=== PATIENT | male | born 1960 | race Caucasian/White ===

== ENCOUNTER 2017-12-28 07:07 | Inpatient (IN) | payer MEDICAID, OTHER ==
[2017-12-28] MEDS ORDERED: NITROGLYCERIN (SL) 0.4 MG TAB (07:16)
[2017-12-28] MEDS: NITROGLYCERIN (SL) 0.4 MG TAB SL (07:19)
[2017-12-28] MEDS: ENALAPRILAT 1.25 MG INJ IV (07:19)
[2017-12-28] MEDS: morphine 4 MG/ML VIAL IV (07:21)
[2017-12-28] MEDS: SOD CHLORIDE 0.9% 500 ML IV (07:21)
[2017-12-28] MEDS: ONDANSETRON 4 MG INJ IV ×2 (07:21→20:38)
[2017-12-28 07:27] LABS: ADD MAN DIFF? NO
[2017-12-28 07:28] LABS: BASOPHIL # 0.1 10^3/ul (0.0-0.1); BASOPHILS % 0.7 % (0.0-2.0); EOSINOPHILS # 0.1 10^3/ul (0.0-0.5); EOSINOPHILS % 1.9 % (0.0-7.0); HEMATOCRIT 44.3 % (42.0-52.0); HEMOGLOBIN 14.9 g/dl (14.0-18.0); LYMPHOCYTES # 2.5 10^3/ul (0.8-2.9); LYMPHOCYTES % 33.4 % (15.0-51.0); MEAN CORPUSCULAR HEMOGLOBIN 30.2 pg (29.0-33.0); MEAN CORPUSCULAR HGB CONC 33.6 g/dl (32.0-37.0); MEAN CORPUSCULAR VOLUME 89.9 fl (82.0-101.0); MONOCYTE # 0.8 10^3/ul (0.3-0.9); MONOCYTES % 10.1 % (0.0-11.0); NEUTROPHILS % 53.6 % (39.0-77.0); PLATELET COUNT 248 10^3/UL (140-415); RED BLOOD COUNT 4.93 10^6/ul (4.70-6.10); RED CELL DISTRIBUTION WIDTH 13.4 % (11.5-14.5)
[2017-12-28 07:28] LABS: WHITE BLOOD COUNT 7.5 10^3/ul (4.8-10.8)
[2017-12-28] MEDS ORDERED: HEPARIN 25000 UNITS/250 ML 250 ML IV (07:40)
[2017-12-28] MEDS ORDERED: HEPARIN 1000 UNITS/ML 10 ML INJ ×2 (07:42→07:49)
[2017-12-28] MEDS: HEPARIN 1000 UNITS/ML 10 ML INJ IV (07:45)
[2017-12-28 07:46] LABS: INR 1.19; PROTIME 15.3 Sec (11.9-14.9); PT RATIO 1.2
[2017-12-28] MEDS ORDERED: FUROSEMIDE 40 MG INJ (07:46)
[2017-12-28 07:47] LABS: PARTIAL THROMBOPLASTIN TIME 23.3 Sec (25.0-35.0)
[2017-12-28] MEDS ORDERED: LIDOCAINE 1% (MDV) 20 ML INJ (07:49)
[2017-12-28] MEDS ORDERED: IODIXANOL LOCM 100 ML BTL (07:49)
[2017-12-28] MEDS ORDERED: FENTAnyl 50 MCG/ML VIAL (07:50)
[2017-12-28] MEDS ORDERED: VERAPAMIL 5 MG INJ (07:50)
[2017-12-28] MEDS ORDERED: MIDAZOLAM 1 MG/ML 2 ML INJ (07:50)
[2017-12-28] MEDS: FUROSEMIDE 40 MG INJ IV (07:50)
[2017-12-28] MEDS ORDERED: NITROGLYCERIN (IC) 100 MCG/ML INJ (07:50)
[2017-12-28] MEDS ORDERED: ONDANSETRON 4 MG INJ ×2 (07:54→08:09)
[2017-12-28 08:02] LABS: CHOLESTEROL 125 mg/dl (100-200)
[2017-12-28 08:02] LABS: ALANINE AMINOTRANSFERASE 30 IU/L (13-69); ALBUMIN 3.9 g/dl (3.3-4.9); ALKALINE PHOSPHATASE 93 IU/L (42-121); ANION GAP 21 (8-16); ASPARTATE AMINO TRANSFERASE 45 IU/L (15-46); BILIRUBIN,INDIRECT 3.3 mg/dl (0-1.1); BILIRUBIN,TOTAL 3.3 mg/dl (0.2-1.3); BLOOD UREA NITROGEN 17 mg/dl (7-20); CALCIUM 9.1 mg/dl (8.4-10.2); CARBON DIOXIDE 21 mmol/L (21-31); CHLORIDE 98 mmol/L (97-110); CHOL/HDL RATIO 6.9 RATIO; CREATINE KINASE 48 IU/L (23-200); CREATININE 0.94 mg/dl (0.61-1.24); GLUCOSE 119 mg/dl (70-220); HDL CHOLESTEROL 18 mg/dl (28-71); LDL CHOLESTEROL,CALCULATED 80 mg/dl; LIPASE 168 U/L (23-300); SODIUM 137 mmol/L (135-144); TOTAL PROTEIN 7.8 g/dl (6.1-8.1); TRIGLYCERIDES 135 mg/dl (0-149)
[2017-12-28 08:14] LABS: B-TYPE NATRIURETIC PEPTIDE 10100 PG/ML (0-125); CK INDEX 1.3; CK-MB 0.61 ng/ml (0.0-2.4); POTASSIUM 2.9 mmol/L (3.5-5.1); TROPONIN-I 0.038 ng/ml (0.000-0.120)
[2017-12-28] MEDS: HEPARIN 25000 UNITS/250 ML 250 ML IV (08:23)
[2017-12-28] MEDS ORDERED: CEFAZOLIN 1 GM/50 ML (PMX) 50 ML IVPB (08:35)
[2017-12-28] MEDS ORDERED: TICAGRELOR 90 MG TABLET (08:58)
[2017-12-28 13:55] LABS: ANION GAP 20 (8-16); BLOOD UREA NITROGEN 17 mg/dl (7-20); CALCIUM 8.5 mg/dl (8.4-10.2); CARBON DIOXIDE 18 mmol/L (21-31); CHLORIDE 100 mmol/L (97-110); CREATININE 0.85 mg/dl (0.61-1.24); GLUCOSE 177 mg/dl (70-220); POTASSIUM 3.1 mmol/L (3.5-5.1); SODIUM 135 mmol/L (135-144)
[2017-12-28] MEDS: POTASSIUM CHLORIDE (SR) 20 MEQ TAB PO (14:49)
[2017-12-28] MEDS: POTASSIUM CHLORIDE 50 ML IVPB (14:49)
[2017-12-28] MEDS: LOSARTAN 25 MG TAB PO ×2 (15:38→21:00)
[2017-12-28 16:30] LABS: AMPHETAMINE/METHAMPHETAMINE Negative (NEGATIVE); BARBITURATES Negative (NEGATIVE); BENZODIAZEPINES Positive (NEGATIVE); CANNABINOIDS Negative (NEGATIVE); COCAINE Negative (NEGATIVE); OPIATES Positive (NEGATIVE)
[2017-12-28 17:57] LABS: ADD UMIC NO; UR ASCORBIC ACID NEGATIVE (NEGATIVE); UR BILIRUBIN (Dip) NEGATIVE (NEGATIVE); UR BLOOD (Dip) NEGATIVE (NEGATIVE); UR CLARITY CLEAR (CLEAR); UR COLOR STRAW (YELLOW); UR GLUCOSE (Dip) NEGATIVE (NEGATIVE); UR KETONES (Dip) NEGATIVE (NEGATIVE); UR LEUKOCYTE ESTERASE (Dip) NEGATIVE Leu/ul (NEGATIVE); UR NITRITE (Dip) NEGATIVE (NEGATIVE); UR SPECIFIC GRAVITY (Dip) 1.016 (1.003-1.030); UR TOTAL PROTEIN (Dip) NEGATIVE (NEGATIVE); UR UROBILINOGEN (Dip) NEGATIVE (NEGATIVE)
[2017-12-28 19:27] LABS: CREATINE KINASE 1258 IU/L (23-200)
[2017-12-28 19:28] LABS: ANION GAP 18 (8-16); BLOOD UREA NITROGEN 19 mg/dl (7-20); CALCIUM 8.8 mg/dl (8.4-10.2); CARBON DIOXIDE 19 mmol/L (21-31); CHLORIDE 101 mmol/L (97-110); CREATININE 1.08 mg/dl (0.61-1.24); GLUCOSE 170 mg/dl (70-220); POTASSIUM 4.3 mmol/L (3.5-5.1); SODIUM 134 mmol/L (135-144)
[2017-12-28 19:39] LABS: CK INDEX 9.3
[2017-12-28] MEDS ORDERED: TICAGRELOR 90 MG TABLET PO (21:00)
[2017-12-28] MEDS: ATORVASTATIN 80 MG TAB PO (21:27)
[2017-12-28] MEDS: ZOLPIDEM 5 MG TAB PO (21:28)
[2017-12-28] MEDS: APIXABAN 5 MG TABLET PO (21:28)
[2017-12-29 05:23] LABS: ADD MAN DIFF? NO
[2017-12-29 05:30] LABS: ABNORMAL IP MESSAGE 1; BASOPHILS % 0.2 % (0.0-2.0); EOSINOPHILS % 0.1 % (0.0-7.0); HEMATOCRIT 39.4 % (42.0-52.0); HEMOGLOBIN 13.2 g/dl (14.0-18.0); LYMPHOCYTES # 1.2 10^3/ul (0.8-2.9); LYMPHOCYTES % 14.1 % (15.0-51.0); MEAN CORPUSCULAR HEMOGLOBIN 29.9 pg (29.0-33.0); MEAN CORPUSCULAR HGB CONC 33.5 g/dl (32.0-37.0); MEAN CORPUSCULAR VOLUME 89.1 fl (82.0-101.0); MEAN PLATELET VOLUME 13.2 fl (7.4-10.4); MONOCYTES % 11.6 % (0.0-11.0); NEUTROPHILS % 73.5 % (39.0-77.0); NUCLEATED RED BLOOD CELLS% 0.4 /100WBC (0.0-0.0); PLATELET COUNT 204 10^3/UL (140-415); POSITIVE DIFF @See below; RED BLOOD COUNT 4.42 10^6/ul (4.70-6.10); RED CELL DISTRIBUTION WIDTH 13.5 % (11.5-14.5)
[2017-12-29 05:30] LABS: WHITE BLOOD COUNT 8.2 10^3/ul (4.8-10.8)
[2017-12-29 05:50] LABS: ANION GAP 17 (8-16); BLOOD UREA NITROGEN 21 mg/dl (7-20); CALCIUM 8.6 mg/dl (8.4-10.2); CARBON DIOXIDE 20 mmol/L (21-31); CHLORIDE 103 mmol/L (97-110); CHOLESTEROL 90 mg/dl (100-200); CREATININE 1.16 mg/dl (0.61-1.24); GLUCOSE 117 mg/dl (70-220); HDL CHOLESTEROL 15 mg/dl (28-71); LDL CHOLESTEROL,CALCULATED 57 mg/dl; POTASSIUM 4.1 mmol/L (3.5-5.1); SODIUM 136 mmol/L (135-144); TRIGLYCERIDES 88 mg/dl (0-149)
[2017-12-29 05:57] LABS: MAGNESIUM 1.6 mg/dl (1.7-2.5)
[2017-12-29] MEDS: CLOPIDOGREL 75 MG TAB PO (08:31)
[2017-12-29] MEDS: APIXABAN 5 MG TABLET PO ×2 (08:32→20:51)
[2017-12-29] MEDS: METOPROLOL (XL) 25 MG TAB PO (08:32)
[2017-12-29] MEDS: ASPIRIN (EC) 81 MG TAB PO (08:32)
[2017-12-29] MEDS: LOSARTAN 25 MG TAB PO ×2 (08:33→20:51)
[2017-12-29 15:09] LABS: AADO2 Arterial 75.4 mmHg (7.0-24.0); Allen Test ACCEPTAB; Arterial Base Excess -3.2 mmol/L (-3.0-3); Arterial COHb 0.5 % (0.0-3.0); Arterial Fraction of Oxyhgb 96.3 % (93.0-99.0); Arterial HCO3 17.7 mmol/L (22.0-26.0); Arterial MetHb 0.2 % (0.0-1.5); Arterial Total Hemglobin 14.1 g/dl (12.0-18.0); Arterial pCO2 22.6 mmhg (35-45); MODE NASAL CANNULA; Site Right Radial
[2017-12-29] MEDS: MAGNESIUM SULFATE 2 GM/50 ML 50 ML IVPB (20:51)
[2017-12-29] MEDS: ATORVASTATIN 80 MG TAB PO (20:51)
[2017-12-30 06:25] LABS: ADD MAN DIFF? NO
[2017-12-30 06:57] LABS: WHITE BLOOD COUNT 7.8 10^3/ul (4.8-10.8)
[2017-12-30 06:57] LABS: ABNORMAL IP MESSAGE 1; BASOPHIL # 0.1 10^3/ul (0.0-0.1); BASOPHILS % 0.9 % (0.0-2.0); EOSINOPHILS # 0.2 10^3/ul (0.0-0.5); EOSINOPHILS % 2.2 % (0.0-7.0); HEMATOCRIT 38.8 % (42.0-52.0); LYMPHOCYTES # 1.6 10^3/ul (0.8-2.9); LYMPHOCYTES % 20.3 % (15.0-51.0); MEAN CORPUSCULAR HEMOGLOBIN 30.3 pg (29.0-33.0); MEAN CORPUSCULAR HGB CONC 33.5 g/dl (32.0-37.0); MEAN CORPUSCULAR VOLUME 90.4 fl (82.0-101.0); MEAN PLATELET VOLUME 13.3 fl (7.4-10.4); MONOCYTE # 1.1 10^3/ul (0.3-0.9); MONOCYTES % 13.5 % (0.0-11.0); NEUTROPHIL # 4.9 10^3/ul (1.6-7.5); NEUTROPHILS % 62.6 % (39.0-77.0); NUCLEATED RED BLOOD CELLS% 0.4 /100WBC (0.0-0.0); PLATELET COUNT 187 10^3/UL (140-415); POSITIVE DIFF @See below; RED BLOOD COUNT 4.29 10^6/ul (4.70-6.10); RED CELL DISTRIBUTION WIDTH 14.1 % (11.5-14.5)
[2017-12-30 07:31] LABS: ANION GAP 18 (8-16); BLOOD UREA NITROGEN 27 mg/dl (7-20); CALCIUM 8.6 mg/dl (8.4-10.2); CARBON DIOXIDE 24 mmol/L (21-31); CHLORIDE 101 mmol/L (97-110); CREATININE 1.25 mg/dl (0.61-1.24); GLUCOSE 95 mg/dl (70-220); MAGNESIUM 2.5 mg/dl (1.7-2.5); POTASSIUM 3.5 mmol/L (3.5-5.1); SODIUM 139 mmol/L (135-144)
[2017-12-30] MEDS: ASPIRIN (EC) 81 MG TAB PO (08:41)
[2017-12-30] MEDS: LOSARTAN 25 MG TAB PO ×2 (08:41→20:43)
[2017-12-30] MEDS: APIXABAN 5 MG TABLET PO ×2 (08:41→20:43)
[2017-12-30] MEDS: CLOPIDOGREL 75 MG TAB PO (08:41)
[2017-12-30] MEDS: METOPROLOL (XL) 25 MG TAB PO (08:42)
[2017-12-30] MEDS: POTASSIUM CHLORIDE (SR) 20 MEQ TAB PO ×2 (08:54→20:43)
[2017-12-30] MEDS: DOCUSATE SODIUM 100 MG CAP PO ×2 (11:00→20:43)
[2017-12-30] MEDS ORDERED: ONDANSETRON 4 MG INJ IV (11:00)
[2017-12-30] MEDS: ONDANSETRON 4 MG INJ IV (11:21)
[2017-12-30] MEDS: FUROSEMIDE 20 MG INJ IV (17:55)
[2017-12-30] MEDS: PANTOPRAZOLE 40 MG INJ IV (17:55)
[2017-12-30] MEDS: ATORVASTATIN 80 MG TAB PO (20:43)
[2017-12-30] MEDS: ALPRAZOLAM 0.25 MG TAB PO (20:44)
[2017-12-31] MEDS: PANTOPRAZOLE 40 MG INJ IV ×2 (05:40→17:36)
[2017-12-31 06:14] LABS: ADD MAN DIFF? NO
[2017-12-31 06:25] LABS: WHITE BLOOD COUNT 7.1 10^3/ul (4.8-10.8)
[2017-12-31 06:25] LABS: ABNORMAL IP MESSAGE 1; BASOPHILS % 0.6 % (0.0-2.0); EOSINOPHILS # 0.1 10^3/ul (0.0-0.5); EOSINOPHILS % 1.7 % (0.0-7.0); HEMOGLOBIN 13.7 g/dl (14.0-18.0); LYMPHOCYTES # 1.5 10^3/ul (0.8-2.9); LYMPHOCYTES % 20.9 % (15.0-51.0); MEAN CORPUSCULAR HEMOGLOBIN 30.9 pg (29.0-33.0); MEAN CORPUSCULAR HGB CONC 34.3 g/dl (32.0-37.0); MEAN CORPUSCULAR VOLUME 90.1 fl (82.0-101.0); MEAN PLATELET VOLUME 13.3 fl (7.4-10.4); MONOCYTE # 0.9 10^3/ul (0.3-0.9); MONOCYTES % 12.1 % (0.0-11.0); NEUTROPHIL # 4.6 10^3/ul (1.6-7.5); NEUTROPHILS % 64.3 % (39.0-77.0); NUCLEATED RED BLOOD CELLS% 0.6 /100WBC (0.0-0.0); PLATELET COUNT 195 10^3/UL (140-415); POSITIVE DIFF @See below; RED BLOOD COUNT 4.44 10^6/ul (4.70-6.10); RED CELL DISTRIBUTION WIDTH 14.1 % (11.5-14.5)
[2017-12-31 06:43] LABS: ANION GAP 16 (8-16); BLOOD UREA NITROGEN 33 mg/dl (7-20); CALCIUM 8.5 mg/dl (8.4-10.2); CARBON DIOXIDE 24 mmol/L (21-31); CHLORIDE 103 mmol/L (97-110); CREATININE 1.83 mg/dl (0.61-1.24); GLUCOSE 96 mg/dl (70-220); SODIUM 139 mmol/L (135-144)
[2017-12-31] MEDS: ASPIRIN (EC) 81 MG TAB PO (08:13)
[2017-12-31] MEDS: DOCUSATE SODIUM 100 MG CAP PO ×2 (08:13→20:58)
[2017-12-31] MEDS: CLOPIDOGREL 75 MG TAB PO (08:13)
[2017-12-31] MEDS: LOSARTAN 25 MG TAB PO ×2 (08:13→21:00)
[2017-12-31] MEDS: APIXABAN 5 MG TABLET PO ×2 (08:14→20:58)
[2017-12-31] MEDS: METOPROLOL (XL) 25 MG TAB PO (08:14)
[2017-12-31] MEDS: ONDANSETRON 4 MG INJ IV (11:10)
[2017-12-31] MEDS: ATORVASTATIN 80 MG TAB PO (20:58)
[2018-01-01] MEDS: PANTOPRAZOLE 40 MG INJ IV ×2 (05:24→17:57)
[2018-01-01 06:17] LABS: ADD MAN DIFF? NO
[2018-01-01 06:27] LABS: WHITE BLOOD COUNT 5.8 10^3/ul (4.8-10.8)
[2018-01-01 06:27] LABS: ABNORMAL IP MESSAGE 1; BASOPHIL # 0.1 10^3/ul (0.0-0.1); BASOPHILS % 0.9 % (0.0-2.0); EOSINOPHILS # 0.1 10^3/ul (0.0-0.5); EOSINOPHILS % 1.4 % (0.0-7.0); HEMATOCRIT 40.2 % (42.0-52.0); HEMOGLOBIN 13.8 g/dl (14.0-18.0); LYMPHOCYTES # 1.3 10^3/ul (0.8-2.9); LYMPHOCYTES % 22.2 % (15.0-51.0); MEAN CORPUSCULAR HEMOGLOBIN 30.8 pg (29.0-33.0); MEAN CORPUSCULAR HGB CONC 34.3 g/dl (32.0-37.0); MEAN CORPUSCULAR VOLUME 89.7 fl (82.0-101.0); MEAN PLATELET VOLUME 13.3 fl (7.4-10.4); MONOCYTE # 0.8 10^3/ul (0.3-0.9); MONOCYTES % 14.4 % (0.0-11.0); NEUTROPHIL # 3.5 10^3/ul (1.6-7.5); NEUTROPHILS % 60.8 % (39.0-77.0); NUCLEATED RED BLOOD CELLS% 0.5 /100WBC (0.0-0.0); PLATELET COUNT 208 10^3/UL (140-415); POSITIVE DIFF @See below; RED BLOOD COUNT 4.48 10^6/ul (4.70-6.10)
[2018-01-01 07:12] LABS: ANION GAP 17 (8-16); BLOOD UREA NITROGEN 37 mg/dl (7-20); CALCIUM 8.5 mg/dl (8.4-10.2); CARBON DIOXIDE 23 mmol/L (21-31); CHLORIDE 102 mmol/L (97-110); CREATININE 2.19 mg/dl (0.61-1.24); GLUCOSE 110 mg/dl (70-220); POTASSIUM 3.8 mmol/L (3.5-5.1); SODIUM 138 mmol/L (135-144)
[2018-01-01] MEDS: DOCUSATE SODIUM 100 MG CAP PO ×2 (09:23→22:02)
[2018-01-01] MEDS: ASPIRIN (EC) 81 MG TAB PO (09:24)
[2018-01-01] MEDS: CLOPIDOGREL 75 MG TAB PO (09:24)
[2018-01-01] MEDS: METOPROLOL (XL) 50 MG TAB PO (09:24)
[2018-01-01] MEDS: LOSARTAN 25 MG TAB PO ×2 (09:24→22:03)
[2018-01-01] MEDS: APIXABAN 5 MG TABLET PO ×2 (09:24→22:03)
[2018-01-01] MEDS: ATORVASTATIN 80 MG TAB PO (22:02)
[2018-01-02] MEDS: PANTOPRAZOLE 40 MG INJ IV ×2 (06:35→17:04)
[2018-01-02] MEDS: DOCUSATE SODIUM 100 MG CAP PO ×2 (08:00→21:21)
[2018-01-02] MEDS: LOSARTAN 25 MG TAB PO (08:01)
[2018-01-02] MEDS: APIXABAN 5 MG TABLET PO ×2 (08:01→21:21)
[2018-01-02] MEDS: CLOPIDOGREL 75 MG TAB PO (08:01)
[2018-01-02] MEDS: ASPIRIN (EC) 81 MG TAB PO (08:01)
[2018-01-02] MEDS: METOPROLOL (XL) 50 MG TAB PO (08:01)
[2018-01-02 10:13] LABS: ANION GAP 16 (8-16); BLOOD UREA NITROGEN 39 mg/dl (7-20); CALCIUM 8.5 mg/dl (8.4-10.2); CARBON DIOXIDE 23 mmol/L (21-31); CHLORIDE 102 mmol/L (97-110); CREATININE 2.44 mg/dl (0.61-1.24); GLUCOSE 121 mg/dl (70-220); SODIUM 137 mmol/L (135-144)
[2018-01-02 11:03] LABS: ADD UMIC YES; UR ASCORBIC ACID NEGATIVE (NEGATIVE); UR BACTERIA FEW /HPF (NONE SEEN); UR BILIRUBIN (Dip) NEGATIVE (NEGATIVE); UR BLOOD (Dip) 2+ mg/dL (NEGATIVE); UR CLARITY TURBID (CLEAR); UR COLOR AMBER (YELLOW); UR GLUCOSE (Dip) NEGATIVE (NEGATIVE); UR KETONES (Dip) NEGATIVE (NEGATIVE); UR LEUKOCYTE ESTERASE (Dip) 1+ Leu/ul (NEGATIVE); UR MUCUS FEW /HPF (NONE SEEN); UR NITRITE (Dip) NEGATIVE (NEGATIVE); UR RBC 2 /HPF (0-5); UR SPECIFIC GRAVITY (Dip) 1.014 (1.003-1.030); UR SQUAMOUS EPITHELIAL CELL FEW /HPF (FEW); UR TOTAL PROTEIN (Dip) 1+ mg/dl (NEGATIVE); UR URIC ACID CRYSTAL MANY /HPF (NONE SEEN); UR UROBILINOGEN (Dip) 2+ mg/dL (NEGATIVE); UR WBC 7 /HPF (0-5)
[2018-01-02] MEDS: SOD CHLORIDE 0.9% 1,000 ML IV (12:02)
[2018-01-02] MEDS: ATORVASTATIN 80 MG TAB PO (21:21)
[2018-01-03] MEDS: SOD CHLORIDE 0.9% 1,000 ML IV ×2 (00:50→12:14)
[2018-01-03 05:35] LABS: ADD MAN DIFF? NO
[2018-01-03 05:44] LABS: ABNORMAL IP MESSAGE 1; BASOPHILS % 0.7 % (0.0-2.0); EOSINOPHILS % 0.5 % (0.0-7.0); HEMATOCRIT 41.1 % (42.0-52.0); LYMPHOCYTES # 1.2 10^3/ul (0.8-2.9); LYMPHOCYTES % 19.3 % (15.0-51.0); MEAN CORPUSCULAR HEMOGLOBIN 30.5 pg (29.0-33.0); MEAN CORPUSCULAR HGB CONC 34.1 g/dl (32.0-37.0); MEAN CORPUSCULAR VOLUME 89.5 fl (82.0-101.0); MEAN PLATELET VOLUME 13.3 fl (7.4-10.4); MONOCYTE # 0.8 10^3/ul (0.3-0.9); MONOCYTES % 12.8 % (0.0-11.0); NEUTROPHILS % 66.4 % (39.0-77.0); NUCLEATED RED BLOOD CELLS # 0.1 10^3/ul (0.0-0.0); PLATELET COUNT 215 10^3/UL (140-415); POSITIVE DIFF @See below; RED BLOOD COUNT 4.59 10^6/ul (4.70-6.10); RED CELL DISTRIBUTION WIDTH 14.3 % (11.5-14.5)
[2018-01-03] MEDS: PANTOPRAZOLE 40 MG INJ IV (06:00)
[2018-01-03 06:16] LABS: ANION GAP 16 (8-16); BLOOD UREA NITROGEN 41 mg/dl (7-20); CALCIUM 8.7 mg/dl (8.4-10.2); CARBON DIOXIDE 23 mmol/L (21-31); CHLORIDE 99 mmol/L (97-110); CREATININE 2.47 mg/dl (0.61-1.24); GLUCOSE 118 mg/dl (70-220); POTASSIUM 4.7 mmol/L (3.5-5.1); SODIUM 133 mmol/L (135-144)
[2018-01-03] MEDS: METOPROLOL (XL) 50 MG TAB PO (08:01)
[2018-01-03] MEDS: CLOPIDOGREL 75 MG TAB PO (08:01)
[2018-01-03] MEDS: APIXABAN 5 MG TABLET PO ×2 (08:01→20:22)
[2018-01-03] MEDS: DOCUSATE SODIUM 100 MG CAP PO ×2 (08:01→20:22)
[2018-01-03] MEDS: ASPIRIN (EC) 81 MG TAB PO (08:01)
[2018-01-03 16:39] LABS: ANION GAP 17 (8-16); BLOOD UREA NITROGEN 41 mg/dl (7-20); CALCIUM 8.7 mg/dl (8.4-10.2); CARBON DIOXIDE 20 mmol/L (21-31); CHLORIDE 101 mmol/L (97-110); CREATININE 2.44 mg/dl (0.61-1.24); GLUCOSE 110 mg/dl (70-220); POTASSIUM 4.4 mmol/L (3.5-5.1); SODIUM 134 mmol/L (135-144)
[2018-01-03 17:46] LABS: CHLORIDE, RANDOM URINE <20 mmol/L (32-290)
[2018-01-03] MEDS: ATORVASTATIN 80 MG TAB PO (20:22)
[2018-01-04] MEDS: SOD CHLORIDE 0.9% 1,000 ML IV (04:20)
[2018-01-04] MEDS: PANTOPRAZOLE (EC) 40 MG TAB PO (05:24)
[2018-01-04 05:58] LABS: ADD MAN DIFF? NO
[2018-01-04 06:20] LABS: WHITE BLOOD COUNT 5.5 10^3/ul (4.8-10.8)
[2018-01-04 06:20] LABS: ABNORMAL IP MESSAGE 1; BASOPHILS % 0.7 % (0.0-2.0); EOSINOPHILS # 0.1 10^3/ul (0.0-0.5); EOSINOPHILS % 1.1 % (0.0-7.0); HEMATOCRIT 41.2 % (42.0-52.0); HEMOGLOBIN 13.8 g/dl (14.0-18.0); LYMPHOCYTES # 1.5 10^3/ul (0.8-2.9); LYMPHOCYTES % 26.4 % (15.0-51.0); MEAN CORPUSCULAR HEMOGLOBIN 30.1 pg (29.0-33.0); MEAN CORPUSCULAR HGB CONC 33.5 g/dl (32.0-37.0); MEAN CORPUSCULAR VOLUME 89.8 fl (82.0-101.0); MEAN PLATELET VOLUME 13.6 fl (7.4-10.4); MONOCYTE # 0.9 10^3/ul (0.3-0.9); MONOCYTES % 15.6 % (0.0-11.0); NEUTROPHIL # 3.1 10^3/ul (1.6-7.5); NEUTROPHILS % 55.7 % (39.0-77.0); NUCLEATED RED BLOOD CELLS # 0.1 10^3/ul (0.0-0.0); NUCLEATED RED BLOOD CELLS% 1.6 /100WBC (0.0-0.0); PLATELET COUNT 196 10^3/UL (140-415); POSITIVE DIFF @See below; RED BLOOD COUNT 4.59 10^6/ul (4.70-6.10); RED CELL DISTRIBUTION WIDTH 14.3 % (11.5-14.5)
[2018-01-04 07:03] LABS: ANION GAP 19 (8-16); BLOOD UREA NITROGEN 39 mg/dl (7-20); CALCIUM 8.5 mg/dl (8.4-10.2); CARBON DIOXIDE 21 mmol/L (21-31); CHLORIDE 99 mmol/L (97-110); CREATININE 2.15 mg/dl (0.61-1.24); GLUCOSE 93 mg/dl (70-220); MAGNESIUM 2.2 mg/dl (1.7-2.5); PHOSPHORUS 4.8 mg/dl (2.5-4.9); POTASSIUM 4.2 mmol/L (3.5-5.1); SODIUM 135 mmol/L (135-144)
[2018-01-04 07:39] LABS: SODIUM,URINE RANDOM < 13 mmol/L (30-90)
[2018-01-04] MEDS: DOCUSATE SODIUM 100 MG CAP PO (08:26)
[2018-01-04] MEDS: ASPIRIN (EC) 81 MG TAB PO (08:31)
[2018-01-04] MEDS: CLOPIDOGREL 75 MG TAB PO (08:31)
[2018-01-04] MEDS: METOPROLOL (XL) 50 MG TAB PO ×2 (08:36→11:49)
[2018-01-04] MEDS: APIXABAN 5 MG TABLET PO (08:36)
[2018-01-04] MEDS: CEFTRIAXONE 1 GM/50 ML (PMX) 50 ML IVPB (11:48)
[2018-01-05] MEDS ORDERED: METOPROLOL (XL) 100 MG TAB PO (09:00)
== END 2018-01-04 18:18 | disposition home or self-care (01) | DRG 246 ==
LOC: 6WM 12-30 12:35 → E/R 07:07 → ICU 08:11
PROC: 027034Z Dilation of Coronary Artery, One Artery with Drug-eluting Intraluminal Device, Percutaneous Approach (ICD-10-PCS; principal; 2017-12-28 07:49)
PROC: 4A023N7 Measurement of Cardiac Sampling and Pressure, Left Heart, Percutaneous Approach (ICD-10-PCS; 2017-12-28 07:49)
PROC: B2111ZZ Fluoroscopy of Multiple Coronary Arteries using Low Osmolar Contrast (ICD-10-PCS; 2017-12-28 07:49)
PROC: B215YZZ Fluoroscopy of Left Heart using Other Contrast (ICD-10-PCS; 2017-12-28 07:49)
PROC: B211YZZ Fluoroscopy of Multiple Coronary Arteries using Other Contrast (ICD-10-PCS; 2017-12-28 07:49)
DX: I21.09 ST elevation (STEMI) myocardial infarction involving other coronary artery of anterior wall (principal); N17.0 Acute kidney failure with tubular necrosis; N39.0 Urinary tract infection, site not specified; I25.5 Ischemic cardiomyopathy; F17.200 Nicotine dependence, unspecified, uncomplicated; E87.6 Hypokalemia; R33.9 Retention of urine, unspecified; R09.02 Hypoxemia; E78.5 Hyperlipidemia, unspecified; I08.1 Rheumatic disorders of both mitral and tricuspid valves; I27.20 Pulmonary hypertension, unspecified; I50.9 Heart failure, unspecified; I25.10 Atherosclerotic heart disease of native coronary artery without angina pectoris; T50.8X5A Adverse effect of diagnostic agents, initial encounter; Y92.239 Unspecified place in hospital as the place of occurrence of the external cause
CPT/HCPCS: 36415; 36600; 71045; 76775; 76856; 80048; 80053; 80061; 80307; 81001; 81003; 82436; 82550; 82553; 82803; 83690; 83735; 83880; 84100; 84300; 84484; 85025; 85610; 85730; 87081; 87086; 93005; 93306; 93458; 96374; 96375; 99291-25